=== PATIENT | female | born 1945 | race Caucasian/White ===

== ENCOUNTER 2016-07-21 04:41 | Emergency (ER) | payer OTHER ==
[2016-07-21 05:28] LABS: BASOPHILS 0.4 % (0.0-2.0); EOSINOPHILS 0.4 % (0.0-6.0); HEMATOCRIT 46.7 % (36.0-48.0); HEMOGLOBIN 15.3 g/dL (12.0-16.0); LYMPHOCYTES 13.7 % (20.0-40.0); LYMPHOCYTES# 0.9 X 10^3uL (0.8-3.8); MEAN CELL VOLUME 88.8 fL (80.0-100.0); MEAN CORPUS. HGB CONCENTRATION 32.9 g/dL (32.0-36.0); MEAN CORPUSCULAR HEMOGLOBIN 29.2 pg (29.0-35.0); MONOCYTES 6.8 % (2.0-10.0); MONOCYTES# 0.4 X 10^3uL (0.2-1.0); NEUTROPHILS 78.7 % (54.0-75.0); NEUTROPHILS# 5.2 X 10^3uL (2.6-6.7); PLATELET COUNT 299 X 10^3uL (130-440); RED BLOOD COUNT 5.26 X 10^6uL (4.20-6.10); RED CELL DISTRIBUTION WIDTH 12.4 % (11.5-14.5); WHITE BLOOD COUNT 6.5 X 10^3uL (3.9-10.7)
[2016-07-21] MEDS ORDERED: KETOROLAC TROMETHAMINE 30 MG/ML VIAL ONE (05:28)
[2016-07-21 05:37] LABS: BLOOD UREA NITROGEN 15 mg/dL (7-17); CALCIUM 9.6 mg/dL (8.4-10.2); CHLORIDE 95 mmol/L (98-107); CREATININE 0.6 mg/dL (0.5-1.0); EST GLOMERULAR FILTRATION RATE > 60 mL/min; GLUCOSE 131 mg/dL (70-100); MAGNESIUM 1.9 mg/dL (1.6-2.3); POTASSIUM 4.1 mmol/L (3.5-5.1); SODIUM 132 mmol/L (137-145)
[2016-07-21 05:49] LABS: TROPONIN I < 0.012 ng/mL (0.00-0.034)
--- NOTE | 2016-07-21 06:49 | ER NURSING DOCUMENTATION ---
Nurse's Notes [facility] Name:Gena Ramirez Age:70 yrs Sex:Female :1945 Arrival Date:07/21/2016 Time:04:41 BedTrauma-C Private MD:No PCP, Identified Diagnosis:Chest Wall Pain Presentation: 07/21 04:48 Presenting complaint: Patient states: left chest/rib pain since 8 pm last night. pain lb occurs with deep breath or lying flat. states was doing some heavy lifting yesterday. Transition of care: Home. AIR CAT ACTIVATION no. Asprin Given n/a. Notified ED Physician of [place] notified. 04:48 Acuity: KEVIN 3 lb 04:48 Method Of Arrival: EMS: 410 lb Triage Assessment: 04:50 General: Appears in no apparent distress, Behavior is cooperative, pleasant. Pain: lb Complains of pain in diaphragm Pain radiates to mid back area Pain currently is 5 out of 10 on a pain scale. Cardiovascular: No deficits noted. Historical: - Allergies: No known drug Allergies; - Home Meds: 1. Lisinopril Oral 2. amlodipine oral 3. aspirin 325 mg oral tab 1 tab once daily - PSHx: Appendectomy; - Tetanus: < 10 years. - Ebola Screening: : Patient denies exposure to infectious person. Patient denies travel to an Ebola-affected area in the 21 days before illness onset. . - Immunization history: Flu Vaccine < 1 year. - Social history: Smoking status: Patient states was never smoker of tobacco. Patient uses alcohol but reports only rare drinking. Screenin:52 Infectious Disease Risk None. Abuse screen: Denies threats or abuse. Denies injuries lb from another. Nutritional screening: No deficits noted. Assessment: 04:52 See Triage Assessment done by same RN. Pain: Pain began 8 pm last night. lb Vital Signs: 04:51 BP 145 / 76; Pulse 70; Resp 16; Temp 98.9(TE); Pulse Ox 91% on R/A; Weight 55.34 kg; lb Height 5 ft. 3 in. (160.02 cm); Pain 5/10; 06:05 BP 113 / 57; Pulse 61; Resp 14; Pulse Ox 92% on R/A; lb 06:47 BP 120 / 60; Pulse 62; Resp 16; Pulse Ox 95% on R/A; Pain 2/10; lb 06:47 BP 120 / 60; Pulse 62; Resp 16; Pulse Ox 95% on R/A; Pain 2/10; lb 04:51 Body Mass Index 21.61 (55.34 kg, 160.02 cm) lb ED Course: 04:42 Patient arrived in ED. em2 04:42 No PCP, Identified is Private Physician. em2 04:43 Amos Driver MD is Attending Physician. 04:48 Jeanine Oquendo is Primary Nurse. lb 04:49 Triage completed. lb 04:52 Valuables Remains with patient. Pulse ox on. NIBP on. lb 05:01 EKG done. (by ED staff). em1 05:36 Port Xray Completed. ms 06:51 EKG attached lb Administered Medications: 05:20 Drug: Toradol 30 mg; Route: IVP; Site: right forearm; lb 06:00 Follow up: Response: Pain is decreased lb 05:21 Drug: Aspirin Chewable Tablet 324 mg; Route: PO; lb 06:01 Follow up: Response: No adverse reaction Outcome: 06:12 Discharge ordered by . 06:47 Discharged to home ambulatory. lb 06:47 Condition: good 06:47 Discharge Assessment: Patient awake, alert and oriented x 3. No cognitive and/or functional deficits noted. Patient verbalized understanding of disposition instructions. 06:47 Instructed on discharge instructions, follow up and referral plans. no drinking with medication, no driving heavy equipment. 06:47 IV D/Kvng 06:48 Patient left the ED. Signatures: Amos Driver MD MD jm Strickland, Mary ar HeatherRoc[employer]Loc-tech, Jayshreetech em1 [place]-reg, Jayshree-reg em2 Jeanine Oquendo
--- NOTE | 2016-07-21 06:49 | ER PHYSICIAN DOCUMENTATION ---
Physician Documentation [facility] Name:Gena Ramirez Age:70 yrs Sex:Female :1945 Arrival Date:07/21/2016 Time:04:41 BedTrauma-C Private MD:No PCP, Identified ED Amos Wu Disposition: 07/21/16 06:12 Discharged to Home/Self Care. Impression: Chest Wall Pain. - Condition is Good. - Discharge Instructions: CHEST WALL PAIN, Costochondritis. - Prescriptions for Hydrocodone- Acetaminophen 5-325 mg Oral Tablet - take 1 tablet by ORAL route every 6 hours As needed; 20 tablet. - Medical Reconciliation form form. - Follow up: Private Physician; When: As needed; Reason: Continuance of care. - Problem is new. - Symptoms have improved. HPI: 07/21 05:00 This 70 yrs old Female presents to ER via EMS with complaints of Chest Pain. jm 05:00 The patient or guardian reports chest pain that is located primarily in the left jm lateral anterior chest. Onset: yesterday, and became worse just prior to arrival. The pain radiates to the left shoulder, There has been no movement of pain. Associated signs and symptoms: Pertinent negatives: abdominal pain, cough, diaphoresis, dizziness, lightheadedness, nausea, near syncope, palpitations, shortness of breath. The chest pain is described as sharp. Modifying factors: the symptoms are aggravated by deep breath, palpation of area, twisting torso. Pt was lifting some logs over her head, a few which were very heavy. This was yesterday. Pt today has this pain. Pt also has had radiation in that area many years ago for breast cancer. . Historical: - Allergies: No known drug Allergies; - Home Meds: 1. Lisinopril Oral 2. amlodipine oral 3. aspirin 325 mg oral tab 1 tab once daily - PSHx: Appendectomy; - Tetanus: < 10 years. - Ebola Screening: : Patient denies exposure to infectious person. Patient denies travel to an Ebola-affected area in the 21 days before illness onset. . - Immunization history: Flu Vaccine < 1 year. - Social history: Smoking status: Patient states was never smoker of tobacco. Patient uses alcohol but reports only rare drinking. ROS: 05:00 Constitutional: Negative for fatigue, fever. jm 05:00 Cardiovascular: Positive for chest pain, with movement, of the left lateral anterior chest. 05:00 Respiratory: Positive for pleurisy. 05:00 Back: Negative for injury or acute deformity, decreased range of motion, pain at rest. 05:00 Skin: Negative for diaphoresis. 05:00 Neuro: Negative for dizziness, syncope. Exam: 05:00 Constitutional: The patient appears alert, awake, comfortable. 05:00 Eyes: Periorbital structures: appear normal, Conjunctiva: normal. 05:00 ENT: Mouth: is normal, Voice: is normal. 05:00 Chest/axilla: Inspection: normal, Palpation: tenderness, that is moderate, of the left lateral anterior chest, that totally reproduces the patient's complaints. 05:00 Cardiovascular: Rate: normal, Rhythm: regular. 05:00 Respiratory: Respirations: normal, Breath sounds: are normal. 05:00 Abdomen/GI: Bowel sounds: normal, Palpation: abdomen is soft and non-tender. 05:00 Musculoskeletal/extremity: DVT Exam: No signs of deep vein thrombosis. Calves: are non-tender, have equal circumference. 05:00 Skin: Appearance: Color: pink, no rash present. 05:00 Neuro: Mentation: is normal, Memory: is normal. 05:00 Psych: Behavior/mood is pleasant, cooperative, Affect is calm. Vital Signs: 04:51 BP 145 / 76; Pulse 70; Resp 16; Temp 98.9(TE); Pulse Ox 91% on R/A; Weight 55.34 kg; lb Height 5 ft. 3 in. (160.02 cm); Pain 5/10; 06:05 BP 113 / 57; Pulse 61; Resp 14; Pulse Ox 92% on R/A; lb 06:47 BP 120 / 60; Pulse 62; Resp 16; Pulse Ox 95% on R/A; Pain 2/10; lb 06:47 BP 120 / 60; Pulse 62; Resp 16; Pulse Ox 95% on R/A; Pain 2/10; lb 04:51 Body Mass Index 21.61 (55.34 kg, 160.02 cm) lb MDM: 04:43 Patient medically screened. 06:51 EKG attached lb 13:00 Differential diagnosis: acute myocardial infarction, chest wall pain, strain. Patient isha took aspirin. Data reviewed: vital signs, nurses notes, lab test result(s), EKG, radiologic studies, and as a result, I will discharge patient. Test interpretation: by ED physician or midlevel provider: plain radiologic studies, ECG. Counseling: I had a detailed discussion with the patient and/or guardian regarding: the historical points, exam findings, and any diagnostic results supporting the discharge/admit diagnosis, lab results, radiology results, the need for outpatient follow up, with the patient's primary care provider. ECG:. Medication response: The patient's symptoms have improved, ED course: All w/u for emergent causes of pain. There appears to be some atelectasis in the LLL which makes since since she has some pleuracy on that side. Pt encouraged to f/u w PCP. she states she will call today. . 07/21 05:31 Order name: CBC AUTO DIF, MDIF/RMOR IF IND; Complete Time: 06:12 [facility] 07/21 05:39 Order name: BASIC METABOLIC PANEL; Complete Time: 06:12 [facility] 07/21 05:39 Order name: MAGNESIUM; Complete Time: 06:12 [facility] 07/21 05:50 Order name: TROPONIN I; Complete Time: 06:12 [facility] 07/21 14:38 Order name: CHEST; [place] [id number] [facility] 07/21 04:49 Order name: 12-lead EKG; Complete Time: 05:21 07/21 04:49 Order name: Iv Saline Lock; Complete Time: 05:21 07/21 04:49 Order name: Place Patient On Monitor; Complete Time: 05:21 07/21 04:49 Order name: Pulse Ox Continuous; Complete Time: 05:22 EC:00 Rhythm is regular. QRS Max is Normal. NH interval is normal. QRS interval is normal. QT interval is normal. No Q waves. T waves are Normal. No ST changes noted. Dispensed Medications: 05:20 Drug: Toradol 30 mg; Route: IVP; Site: right forearm; lb 06:00 Follow up: Response: Pain is decreased lb 05:21 Drug: Aspirin Chewable Tablet 324 mg; Route: PO; lb 06:01 Follow up: Response: No adverse reaction lb Signatures: Amos Driver MD MD jm Bollock, Lynda lb
--- NOTE | 2016-07-21 12:41 | RADIOLOGY REPORT ---
A limited single portable view of the chest at 0538 hours without prior films for comparison, demonstrates the heart and vessels to be unremarkable. The right lung field is clear. Atelectasis and fluid obscure the left lung base. The left mid and upper lung field are clear. No pneumothorax is seen. IMPRESSION: Fluid and atelectasis obscuring the left lung base. Additional pathology is not excluded. If clinically indicated, further evaluation with CT scanning may be of benefit. The findings were personally reviewed with Dr. Driver at 0930 hours on 07/21/2016. [facility]
== END 2016-07-21 06:49 | disposition home or self-care (01) ==
LOC: ER 04:41
DX: R07.81 Pleurodynia (principal); R09.1 Pleurisy; Z79.899 Other long term (current) drug therapy; Z79.82 Long term (current) use of aspirin; Z85.3 Personal history of malignant neoplasm of breast; Z74.3 Need for continuous supervision
CPT/HCPCS: 71010; 80048; 83735; 84484; 85025; 93005; 96374; 99284; A0425; A0427; J1885